=== PATIENT | female | born 1995 | race Caucasian/White ===

== ENCOUNTER → 2020-09-04 | Outpatient (CLI) | payer BC | LOC: CPPFTMAIN 07:05 | PROVIDERS: ATTEND Family Medicine | DX: J45.998 Other asthma (principal) | CPT/HCPCS: 94060; 94726; 94729 ==

== ENCOUNTER 2022-08-04 08:34 | Emergency (ER) | payer BC ==
[2022-08-04 08:38] VITALS: TEMP 98.1
[2022-08-04] MEDS ORDERED: SODIUM CHLORIDE 0.9% 1,000 ML IV STA (08:48)
[2022-08-04] MEDS ORDERED: KETOROLAC 15 MG/ML 1 ML VIAL IVP STA (08:48)
[2022-08-04] MEDS ORDERED: ONDANSETRON 4 MG/2 ML VIAL IVP STA (08:48)
--- NOTE | 2022-08-04 08:49 | ED ---
General Adult HPI - General Chief complaint: Abdominal Pain Stated complaint: abd pain, dizzy Time Seen by Provider: 08/04/22 08:44 Source: patient, RN notes reviewed, old records reviewed Mode of arrival: ambulatory Limitations: no limitations - History of Present Illness Initial comments: Nontoxic appearing 26-year-old female presents to the emergency room with complaints of bilateral flank pain and pelvic cramping since yesterday. Currently on menses recently started control. She denies any fevers. No nausea vomiting or diarrhea. No dysuria. States that the pain was making her dizzy which has now resolved. Describes pain as cramping in nature consistent with her menses. No history of kidney stones. No fevers. History of asthma. -: days(s) (1) Location: back (low), pelvis Severity scale (1-10): 4 Quality: other (cramping) Associated Symptoms: denies other symptoms Treatments Prior to Arrival: none - Related Data Home Medications Medication Instructions Recorded Confirmed norethindrone-e.estradioL-iron 1 tab PO HS 08/04/22 08/04/22 [Junel Fe 1 mg-20 Mcg Tablet] Previous Rx's Medication Instructions Recorded Ibuprofen 400 mg PO Q8HR PRN #30 tablet 08/04/22 Allergies Allergy/AdvReac Type Severity Reaction Status Date / Time morphine Allergy Rash/DK Verified 08/04/22 09:06 Patient : No Review of Systems ROS Statement: Those systems with pertinent positive or pertinent negative responses have been documented in the HPI. ROS Other: All systems not noted in ROS Statement are negative. Past Medical History Past Medical History: Asthma History of Any Multi-Drug Resistant Organisms: None Reported Past Surgical History: No Surgical Hx Reported Past Psychological History: No Psychological Hx Reported Smoking Status: Never smoker Past Alcohol Use History: None Reported Past Drug Use History: None Reported General Exam Limitations: no limitations General appearance: alert, in no apparent distress Head exam: Present: atraumatic Eye exam: Present: normal appearance. Absent: scleral icterus, conjunctival injection, periorbital swelling Neck exam: Absent: meningismus Respiratory exam: Absent: respiratory distress, accessory muscle use Cardiovascular Exam: Present: regular rate GI/Abdominal exam: Present: soft, tenderness (suprapubic). Absent: distended, guarding, rebound, rigid Back exam: Present: full ROM, tenderness, paraspinal tenderness (lumbar). Absent: CVA tenderness (R), CVA tenderness (L), vertebral tenderness, rash noted Neurological exam: Present: alert, oriented X3, normal gait Psychiatric exam: Present: normal affect, normal mood Skin exam: Present: warm, dry, normal color. Absent: rash, cyanosis, diaphoretic, petechiae, pallor Course Vital Signs 08/04/22 08/04/22 08:36 10:20 Temperature 98.1 F 98.1 F Pulse Rate 84 72 Respiratory 20 18 Rate Blood Pressure 129/77 111/64 O2 Sat by Pulse 99 100 Oximetry Medical Decision Making - Medical Decision Making Vital signs are stable. Patient is afebrile. Labs show no evidence of leukocytosis. Hemoglobin and hematocrit are stable. Initial electrolytes are unremarkable. Urinalysis is negative. Urine test is negative. No rashes, bruising or evidence of trauma. No dysuria. Patient was given IV fluids, Toradol and Zofran with relief. This is likely musculoskeletal low back pain vs menstrual pain. She was directed to take Tylenol Motrin as needed for pain and discomfort and follow-up with her primary care doctor and return with any new or concerning symptoms. She is agreeable to this plan of care. Case discussed with Dr. Haro. Was pt. sent in by a medical professional or institution ([facility]ULIET Vázquez, ON SITE PROPERTY MANAGER, urgent care, hospital, or [facility]...) When possible be specific @ -No Did you speak to anyone other than the patient for history (EMS, parent, family, police, friend...)? What history was obtained from this source @ -No Did you review nursing and triage notes (agree or disagree)? Why? @ -I reviewed and agree with nursing and triage notes Were old charts reviewed (outside hosp., previous admission, EMS record, old EKG, old radiological studies, urgent care reports/EKG's, [facility] records)? Report findings @ -No old charts were reviewed Differential Diagnosis (chest pain, altered mental status, abdominal pain women, abdominal pain men, vaginal bleeding, weakness, fever, dyspnea, syncope, headache, dizziness, GI bleed, back pain, seizure, CVA, palpatations, mental health, musculoskeletal)? @ -Differential Back Pain: Strain, zoster, cauda equina syndrome, epidural abscess, vertebral osteomyelitis, discitis, fracture, subluxation, disc herniation, DJD, spinal stenosis, dissection, AAA, pancreatitis, peptic ulcer disease, pyelonephritis, kidney stone, this is not meant to be an all-inclusive list. EKG interpreted by me (3pts min.). @ -n/a X-rays interpreted by me (1pt min.). @ -None done CT interpreted by me (1pt min.). @ -None done U/S interpreted by me (1pt. min.). @ -None done What testing was considered but not performed or refused? (CT, X-rays, U/S, labs)? Why? @ -None What meds were considered but not given or refused? Why? @ -None Did you discuss the management of the patient with other professionals (professionals i.e. , PA, ON SITE PROPERTY MANAGER, lab, RT, psych nurse, social sciences department chair, tariff inspector, teacher, evp chief exploration officer, cyanide case hardener)? Give summary @ -No Was smoking cessation discussed for >3mins.? @ -No Was critical care preformed (if so, how long)? @ -No Were there social determinants of health that impacted care today? How? (Homelessness, low income, unemployed, alcoholism, drug addiction, transportation, low edu. Level, literacy, decrease access to med. care, shelter, rehab)? @ -No primary care doctor Was there de-escalation of care discussed even if they declined (Discuss DNR or withdrawal of care, Hospice)? DNR status @ -No What co-morbidities impacted this encounter? (DM, HTN, Smoking, COPD, CAD, Cancer, CVA, ARF, Chemo, Hep., AIDS, mental health diagnosis, sleep apnea, morbid obesity)? @ -Asthma Was patient admitted / discharged? Hospital course, mention meds given and route, prescriptions, significant lab abnormalities, going to OR and other pertinent info. @ -Discharged Undiagnosed new problem with uncertain prognosis? @ -No Drug Therapy requiring intensive monitoring for toxicity (Heparin, Nitro, Insulin, Cardizem)? @ -No Were any procedures done? @ -No Diagnosis/symptom? @ -Musculoskeletal back pain, dysmenorrhea Acute, or Chronic, or Acute on Chronic? @ -Acute Uncomplicated (without systemic symptoms) or Complicated (systemic symptoms)? @ -Uncomplicated Side effects of treatment? @ -No Exacerbation, Progression, or Severe Exacerbation? @ -No Poses a threat to life or bodily function? How? (Chest pain, [place], [place], pneumonia, PE, COPD, DKA, ARF, appy, cholecystitis, CVA, Diverticulitis, Homicidal, Suicidal, threat to staff... and all critical care pts) @ -No - Lab Data Result diagrams: 08/04/22 09:10 08/04/22 09:10 Lab Results 08/04/22 08/04/22 08/04/22 Range/Units 09:10 09:10 09:10 WBC 5.9 (3.8-10.6) k/uL RBC 4.67 (3.80-5.40) m/uL Hgb 14.2 (11.4-16.0) gm/dL Hct 41.7 (34.0-46.0) % MCV 89.3 (80.0-100.0) fL MCH 30.5 (25.0-35.0) pg MCHC 34.1 (31.0-37.0) g/dL RDW 13.4 (11.5-15.5) % Plt Count 318 (150-450) k/uL MPV 7.3 Neutrophils % 52 % Lymphocytes % 32 % Monocytes % 6 % Eosinophils % 6 % Basophils % 1 % Neutrophils # 3.1 (1.3-7.7) k/uL Lymphocytes # 1.9 (1.0-4.8) k/uL Monocytes # 0.3 (0-1.0) k/uL Eosinophils # 0.3 (0-0.7) k/uL Basophils # 0.1 (0-0.2) k/uL Sodium (137-145) mmol/L Potassium (3.5-5.1) mmol/L Chloride (98-107) mmol/L Carbon Dioxide (22-30) mmol/L Anion Gap mmol/L BUN (7-17) mg/dL Creatinine (0.52-1.04) mg/dL Est GFR (CKD-EPI)AfAm (>60 ml/min/1.73 sqM) Est GFR (CKD-EPI)NonAf (>60 ml/min/1.73 sqM) Glucose (74-99) mg/dL Calcium (8.4-10.2) mg/dL Total Bilirubin (0.2-1.3) mg/dL AST (14-36) U/L ALT (4-34) U/L Alkaline Phosphatase (38-126) U/L Total Protein (6.3-8.2) g/dL Albumin (3.5-5.0) g/dL Urine Color Light Yellow Urine Appearance Clear (Clear) Urine pH 5.5 (5.0-8.0) Ur Specific [place] 1.003 (1.001-1.035) Urine Protein Negative (Negative) Urine Glucose (UA) Negative (Negative) Urine Ketones Negative (Negative) Urine Blood Small H (Negative) Urine Nitrite Negative (Negative) Urine Bilirubin Negative (Negative) Urine Urobilinogen <2.0 (<2.0) mg/dL Ur Leukocyte Esterase Negative (Negative) Urine RBC <1 (0-5) /hpf Urine WBC <1 (0-5) /hpf Ur Squamous Epith Cells 1 (0-4) /hpf Urine HCG, Qual Not Detected (Not Detectd) 08/04/22 Range/Units 09:10 WBC (3.8-10.6) k/uL RBC (3.80-5.40) m/uL Hgb (11.4-16.0) gm/dL Hct (34.0-46.0) % MCV (80.0-100.0) fL MCH (25.0-35.0) pg MCHC (31.0-37.0) g/dL RDW (11.5-15.5) % Plt Count (150-450) k/uL MPV Neutrophils % % Lymphocytes % % Monocytes % % Eosinophils % % Basophils % % Neutrophils # (1.3-7.7) k/uL Lymphocytes # (1.0-4.8) k/uL Monocytes # (0-1.0) k/uL Eosinophils # (0-0.7) k/uL Basophils # (0-0.2) k/uL Sodium 141 (137-145) mmol/L Potassium 4.3 (3.5-5.1) mmol/L Chloride 109 H (98-107) mmol/L Carbon Dioxide 24 (22-30) mmol/L Anion Gap 8 mmol/L BUN 13 (7-17) mg/dL Creatinine 0.50 L (0.52-1.04) mg/dL Est GFR (CKD-EPI)AfAm >90 (>60 ml/min/1.73 sqM) Est GFR (CKD-EPI)NonAf >90 (>60 ml/min/1.73 sqM) Glucose 85 (74-99) mg/dL Calcium 9.0 (8.4-10.2) mg/dL Total Bilirubin 0.2 (0.2-1.3) mg/dL AST 22 (14-36) U/L ALT 18 (4-34) U/L Alkaline Phosphatase 45 (38-126) U/L Total Protein 7.3 (6.3-8.2) g/dL Albumin 4.1 (3.5-5.0) g/dL Urine Color Urine Appearance (Clear) Urine pH (5.0-8.0) Ur Specific [place] (1.001-1.035) Urine Protein (Negative) Urine Glucose (UA) (Negative) Urine Ketones (Negative) Urine Blood (Negative) Urine Nitrite (Negative) Urine Bilirubin (Negative) Urine Urobilinogen (<2.0) mg/dL Ur Leukocyte Esterase (Negative) Urine RBC (0-5) /hpf Urine WBC (0-5) /hpf Ur Squamous Epith Cells (0-4) /hpf Urine HCG, Qual (Not Detectd) Disposition Clinical Impression: Back pain, Dysmenorrhea Disposition: HOME SELF-CARE Condition: Good Instructions (If sedation given, give patient instructions): Flank Pain (ED), Back Pain (ED) Additional Instructions: The labs today show normal kidney function. Your electrolytes are normal. There is no evidence of urinary tract infection. Take Tylenol and/or Motrin as needed for any pain or discomfort. Follow up with primary care doctor for continuation of care. Prescriptions: Ibuprofen 400 mg PO Q8HR PRN #30 tablet PRN Reason: Pain Is patient prescribed a controlled substance at d/c from ED?: No Referrals: None,Stated [Primary Care Provider] - 1-2 days Harinder García DO [STAFF PHYSICIAN] - 1-2 days Erik Nash MD [REFERRING] - 1-2 days Time of Disposition: 09:59
[2022-08-04 09:40] LABS: Appearance,Urine Clear (Clear); Bilirubin,Urine Negative (Negative); Blood,Urine Small (Negative); Color,Urine Light Yellow; Glucose,Urine (UA) Negative (Negative); Ketones,Urine Negative (Negative); Leukocyte Esterase,Urine Negative (Negative); Nitrite,Urine Negative (Negative); PH, Urine 5.5 (5.0-8.0); Protein,Urine Negative (Negative); RBC,Urine <1 /hpf (0-5); Specific Gravity,Urine 1.003 (1.001-1.035); Squamous Epithelial Cell,Urine 1 /hpf (0-4); Urobilinogen,Urine <2.0 mg/dL (<2.0); WBC,Urine <1 /hpf (0-5)
[2022-08-04 09:41] LABS: ALT 18 U/L (4-34); AST 22 U/L (14-36); African American GFR (CKD) >90 (>60 ml/min/1.73 sqM); Albumin 4.1 g/dL (3.5-5.0); Alkaline Phosphatase 45 U/L (38-126); Anion Gap 8 mmol/L; Basophils # (A) 0.1 k/uL (0-0.2); Basophils % (A) 1 %; Blood Urea Nitrogen 13 mg/dL (7-17); Carbon Dioxide 24 mmol/L (22-30); Chloride 109 mmol/L (98-107); Eosinophils # (A) 0.3 k/uL (0-0.7); Eosinophils % (A) 6 %; Glucose 85 mg/dL (74-99); HCT 41.7 % (34.0-46.0); HGB 14.2 gm/dL (11.4-16.0); Lymphocytes # (A) 1.9 k/uL (1.0-4.8); Lymphocytes % (A) 32 %; MCH 30.5 pg (25.0-35.0); MCHC 34.1 g/dL (31.0-37.0); MCV 89.3 fL (80.0-100.0); Mean Platelet Volume 7.3; Monocytes # (A) 0.3 k/uL (0-1.0); Monocytes % (A) 6 %; Neutrophils # (A) 3.1 k/uL (1.3-7.7); Neutrophils % (A) 52 %; Non-African American GFR(CKD) >90 (>60 ml/min/1.73 sqM); Platelet Count 318 k/uL (150-450); Potassium 4.3 mmol/L (3.5-5.1); RBC 4.67 m/uL (3.80-5.40); RDW 13.4 % (11.5-15.5); Sodium 141 mmol/L (137-145); Total Bilirubin 0.2 mg/dL (0.2-1.3); Total Protein 7.3 g/dL (6.3-8.2); WBC 5.9 k/uL (3.8-10.6)
[2022-08-04 10:21] VITALS: BP 111/64; PULSE 72; RESP 18
== END 2022-08-04 10:20 | disposition home or self-care (01) ==
LOC: EC 08:34
DX: N94.6 Dysmenorrhea, unspecified (principal); J45.909 Unspecified asthma, uncomplicated; Z88.5 Allergy status to narcotic agent
CPT/HCPCS: 99284 ×2; 96374 ×2; 96375 ×2; 96361 ×2; 36415; 80053; 85025; 81001; 81025; J2405; J1885

== ENCOUNTER 2022-08-14 16:55 | Emergency (ER) | payer BC ==
--- NOTE | 2022-08-14 17:39 | ED ---
Abdominal Pain HPI - General Chief Complaint: Abdominal Pain Stated Complaint: Abd problems Time Seen by Provider: 08/14/22 17:16 Source: patient Mode of arrival: ambulatory Limitations: no limitations - History of Present Illness Initial Comments: This patient is 26-year-old woman who presents with complaint of constipation. She states she is having diffuse abdominal cramping associated. Her last normal bowel movement was approximately 2 weeks ago. She states that she has tried two saline enemas which only resulted in a very small amount of stool. The patient has tried taking lactulose and also tried Colace without significant relief of symptoms. The patient had gone to an urgent care and had digital rectal exam did not reveal stool in the rectal vault. Patient not having vomiting. MD Complaint: abdominal pain Onset/Timin -: week(s) Location: diffuse Severity: moderate Quality: cramping Consistency: intermittent Improves With: nothing Worsens With: nothing Associated Symptoms: constipation - Related Data Home Medications Medication Instructions Recorded Confirmed norethindrone-e.estradioL-iron 1 tab PO HS 08/04/22 08/14/22 [Junel Fe 1 mg-20 Mcg Tablet] Sulfamethox-Tmp 800-160Mg [Bactrim 1 tab PO Q12HR 08/14/22 08/14/22 DS 800-160 mg] Previous Rx's Medication Instructions Recorded Ibuprofen 400 mg PO Q8HR PRN #30 tablet 08/04/22 Allergies Allergy/AdvReac Type Severity Reaction Status Date / Time morphine Allergy Rash/DK Verified 08/14/22 17:14 Review of Systems ROS Statement: Those systems with pertinent positive or pertinent negative responses have been documented in the HPI. ROS Other: All systems not noted in ROS Statement are negative. Constitutional: Denies: fever, chills Respiratory: Denies: cough, dyspnea Cardiovascular: Denies: chest pain, palpitations Gastrointestinal: Reports: abdominal pain, nausea, constipation. Denies: vomiting, diarrhea, melena, hematochezia Genitourinary: Denies: dysuria, hematuria Musculoskeletal: Denies: back pain Skin: Denies: rash Neurological: Denies: headache, weakness Past Medical History Past Medical History: Asthma History of Any Multi-Drug Resistant Organisms: None Reported Past Surgical History: No Surgical Hx Reported Past Psychological History: No Psychological Hx Reported Smoking Status: Never smoker Past Alcohol Use History: None Reported Past Drug Use History: None Reported General Exam Limitations: no limitations General appearance: alert, in no apparent distress Head exam: Present: atraumatic, normocephalic Eye exam: Present: normal appearance. Absent: scleral icterus, conjunctival injection Respiratory exam: Present: normal lung sounds bilaterally. Absent: respiratory distress, wheezes, rales, rhonchi, stridor Cardiovascular Exam: Present: regular rate, normal rhythm, normal heart sounds. Absent: systolic murmur, diastolic murmur, rubs, gallop GI/Abdominal exam: Present: soft. Absent: distended, tenderness, guarding, re bound, rigid, mass Extremities exam: Present: normal inspection, normal capillary refill. Absent: pedal edema, calf tenderness Back exam: Present: normal inspection. Absent: CVA tenderness (R), CVA tenderness (L) Neurological exam: Present: alert Skin exam: Present: warm, dry, intact, normal color. Absent: rash Course Vital Signs 08/14/22 08/14/22 17:12 20:45 Pulse Rate 88 89 Respiratory 16 18 Rate Blood Pressure 148/76 141/72 O2 Sat by Pulse 99 100 Oximetry Medical Decision Making - Medical Decision Making This patient is a 26-year-old woman presenting with abdominal pain and sensation of constipation. The patient did have abdominal x-ray as it had been a while since she ever passing flatus and I interpreted this as not showing bowel obstruction or free air. The patient is offered enema here but she would like to attempt this at home. I believe that the patient will benefit also from having the course of GoLYTELY. I discussed appropriate use of both of these as well as the appropriate follow- up and return parameters. Was pt. sent in by a medical professional or institution (, PA, DOG OR HORSE RACING OFFICIAL, urgent care, hospital, or penitentiary...) When possible be specific @ -[No] Did you speak to anyone other than the patient for history (EMS, parent, family, police, friend...)? What history was obtained from this source @ -[No] Did you review nursing and triage notes (agree or disagree)? Why? @ -[I reviewed and agree with nursing and triage notes] Were old charts reviewed (outside hosp., previous admission, EMS record, old EKG, old radiological studies, urgent care reports/EKG's, penitentiary records)? Report findings @ -[No old charts were reviewed] Differential Diagnosis (chest pain, altered mental status, abdominal pain women, abdominal pain men, vaginal bleeding, weakness, fever, dyspnea, syncope, headache, dizziness, GI bleed, back pain, seizure, CVA, palpatations, mental health, musculoskeletal)? @ -[Differential Abdominal Pain Women: Appendicitis, Cholecystitis, diverticulosis, ischemic bowel, pancreatitis, hepatitis, UTI, gastroenteritis, AAA, incarcerated hernia, bowel obstruction, constipation, inflammatory bowel, hepatitis, peptic ulcer disease, splenic infarction, perforated viscus, vulvitis, ovarian torsion, PID, kidney stone, placenta abruption, this is not meant to be an all-inclusive list EKG interpreted by me (3pts min.). @ -[ X-rays interpreted by me (1pt min.). @ -[As above CT interpreted by me (1pt min.). @ -[None done] U/S interpreted by me (1pt. min.). @ -[None done] What testing was considered but not performed or refused? (CT, X-rays, U/S, labs)? Why? @ -[None] What meds were considered but not given or refused? Why? @ -[None] Did you discuss the management of the patient with other professionals (professionals i.e. , PA, DOG OR HORSE RACING OFFICIAL, lab, RT, psych nurse, rn social services, mexican food cook, teacher, cavalry officer, continuous pillowcase cutter)? Give summary @ -[No] Was smoking cessation discussed for >3mins.? @ -[No] Was critical care preformed (if so, how long)? @ -[No] Were there social determinants of health that impacted care today? How? (Homelessness, low income, unemployed, alcoholism, drug addiction, transportation, low edu. Level, literacy, decrease access to med. care, prison, rehab)? @ -[No] Was there de-escalation of care discussed even if they declined (Discuss DNR or withdrawal of care, Hospice)? DNR status @ -[No] What co-morbidities impacted this encounter? (DM, HTN, Smoking, COPD, CAD, Cancer, CVA, ARF, Chemo, Hep., AIDS, mental health diagnosis, sleep apnea, morbid obesity)? @ -[None] Was patient admitted / discharged? Hospital course, mention meds given and route, prescriptions, significant lab abnormalities, going to OR and other pertinent info. @ -[Discharged Undiagnosed new problem with uncertain prognosis? @ -[No] Drug Therapy requiring intensive monitoring for toxicity (Heparin, Nitro, Insulin, Cardizem)? @ -[No] Were any procedures done? @ -[No] Diagnosis/symptom? @ -[Abdominal pain, acute Constipation, acute Acute, or Chronic, or Acute on Chronic? @ -[default] Uncomplicated (without systemic symptoms) or Complicated (systemic symptoms)? @ -[Uncomplicated Side effects of treatment? @ -[No] Exacerbation, Progression, or Severe Exacerbation? @ -[No] Poses a threat to life or bodily function? How? (Chest pain, [place], [place], pneumonia, PE, COPD, DKA, ARF, appy, cholecystitis, CVA, Diverticulitis, Homicidal, Suicidal, threat to staff... and all critical care pts) @ -[No] - Lab Data Lab Results 08/14/22 08/14/22 Range/Units 17:52 17:52 Urine Color Yellow Urine Appearance Clear (Clear) Urine pH 7.0 (5.0-8.0) Ur Specific [place] 1.015 (1.001-1.035) Urine Protein Negative (Negative) Urine Glucose (UA) Negative (Negative) Urine Ketones 1+ H (Negative) Urine Blood Trace H (Negative) Urine Nitrite Negative (Negative) Urine Bilirubin Negative (Negative) Urine Urobilinogen <2.0 (<2.0) mg/dL Ur Leukocyte Esterase Negative (Negative) Urine RBC 2 (0-5) /hpf Urine WBC 3 (0-5) /hpf Ur Squamous Epith Cells 6 H (0-4) /hpf Urine Mucus Rare H (None) /hpf Urine HCG, Qual Not Detected (Not Detectd) Disposition Clinical Impression: Constipation Disposition: HOME SELF-CARE Condition: Good Instructions (If sedation given, give patient instructions): Acute Abdominal Pain (ED) Is patient prescribed a controlled substance at d/c from ED?: No Referrals: None,Stated [Primary Care Provider] - 1-2 days
[2022-08-14 18:07] LABS: Appearance,Urine Clear (Clear); Bilirubin,Urine Negative (Negative); Blood,Urine Trace (Negative); Color,Urine Yellow; Glucose,Urine (UA) Negative (Negative); Ketones,Urine 1+ (Negative); Leukocyte Esterase,Urine Negative (Negative); Mucus,Urine Rare /hpf; Nitrite,Urine Negative (Negative); Protein,Urine Negative (Negative); RBC,Urine 2 /hpf (0-5); Specific Gravity,Urine 1.015 (1.001-1.035); Squamous Epithelial Cell,Urine 6 /hpf (0-4); Urobilinogen,Urine <2.0 mg/dL (<2.0); WBC,Urine 3 /hpf (0-5)
--- NOTE | 2022-08-14 18:40 | XR ---
EXAMINATION TYPE: XR KUB DATE OF EXAM: 08/14/2022 6:29 PM CLINICAL HISTORY: Abdominal pain. TECHNIQUE: Two Upright KUB images of the abdomen are obtained. COMPARISON: CT abdomen and pelvis May 09, 2015. FINDINGS: Gas is seen in nondistended stomach. Scattered gas is seen in non-distended small bowel loo ps. Gas and fecal material is seen in non-distended colon. Metallic left nipple ornament incidentally noted. There is no visceromegaly, pneumoperitoneum, or abnormal calcification appreciated. The lung bases are clear. Slight scoliotic curvature redemonstrated. IMPRESSION: Overall nonobstructive bowel gas pattern.
[2022-08-14] MEDS ORDERED: PEG 3350 (236 GM/BTL) + LYTES 4,000 ML BOTTLE PO ONE (20:22)
[2022-08-14 20:46] VITALS: BP 141/72; PULSE 89; RESP 18
== END 2022-08-14 20:55 | disposition home or self-care (01) ==
LOC: EC 16:55
DX: K59.00 Constipation, unspecified (principal); J45.909 Unspecified asthma, uncomplicated; Z88.5 Allergy status to narcotic agent
CPT/HCPCS: 74018; 81001; 81025; 99284

== ENCOUNTER 2023-04-12 15:35 | Emergency (ER) | payer BC ==
[2023-04-12 15:43] VITALS: BP 117/70; PULSE 99; RESP 18; TEMP 99.1
[2023-04-12 16:48] LABS: Color,Urine Yellow
[2023-04-12 16:49] LABS: Appearance,Urine Clear (Clear); Bilirubin,Urine Negative (Negative); Blood,Urine Small (Negative); Glucose,Urine (UA) Negative (Negative); Ketones,Urine Negative (Negative); Leukocyte Esterase,Urine Negative (Negative); Nitrite,Urine Negative (Negative); PH, Urine 5.5 (5.0-8.0); Protein,Urine Negative (Negative); Urobilinogen,Urine <2.0 mg/dL (<2.0)
--- NOTE | 2023-04-12 17:42 | ED ---
General Adult HPI - General Chief complaint: Urogenital Stated complaint: abd/back pain Time Seen by Provider: 04/12/23 16:52 Source: patient Mode of arrival: ambulatory Limitations: no limitations - History of Present Illness Initial comments: 27-year-old female presenting with chief complaint of abdominal pain and back pain. Patient states that she started to feel generally fatigued a few days ago. Since then she's developed bilateral flank pain and upper abdominal pain. She admits to nausea and vomiting. Admits to diarrhea. No dysuria or willian turia. No fevers or chills. No chest pain or difficulty breathing. No vaginal bleeding or discharge. - Related Data Home Medications Medication Instructions Recorded Confirmed norethindrone-e.estradioL-iron 1 tab PO HS 08/04/22 08/14/22 [Junel Fe 1 mg-20 Mcg Tablet] Sulfamethox-Tmp 800-160Mg [Bactrim 1 tab PO Q12HR 08/14/22 08/14/22 DS 800-160 mg] Previous Rx's Medication Instructions Recorded Ibuprofen 400 mg PO Q8HR PRN #30 tablet 08/04/22 Ondansetron Odt [Zofran Odt] 4 mg PO Q8HR PRN #20 tab 04/12/23 Allergies Allergy/AdvReac Type Severity Reaction Status Date / Time morphine Allergy Rash/DK Verified 04/12/23 15:41 Review of Systems ROS Statement: Those systems with pertinent positive or pertinent negative responses have been documented in the HPI. ROS Other: All systems not noted in ROS Statement are negative. Past Medical History Past Medical History: Asthma Additional Past Medical History / Comment(s): renal fusion (horseshoe kidney) History of Any Multi-Drug Resistant Organisms: None Reported Past Surgical History: No Surgical Hx Reported Past Psychological History: No Psychological Hx Reported Smoking Status: Never smoker Past Alcohol Use History: None Reported Past Drug Use History: None Reported General Exam - General Exam Comments Initial Comments: Visual Physical Exam Vital signs reviewed General: Well-appearing, nontoxic, no acute distress. Head: Normocephalic, atraumatic Eyes: PERRLA, EOMI ENT: Airway patent Chest: Nonlabored breathing Skin: No visual rash, normal skin tone Neuro: Alert and oriented 3 Musculoskeletal: No gross abnormalities Limitations: no limitations General appearance: alert, in no apparent distress Head exam: Present: atraumatic, normocephalic, normal inspection Eye exam: Present: normal appearance, EOMI Neck exam: Present: normal inspection, full ROM Respiratory exam: Present: normal lung sounds bilaterally. Absent: respiratory distress, wheezes, rales, rhonchi, stridor Cardiovascular Exam: Present: regular rate, normal rhythm, normal heart sounds. Absent: systolic murmur, diastolic murmur, rubs, gallop, clicks GI/Abdominal exam: Present: soft. Absent: distended, tenderness, guarding, rebound, rigid Neurological exam: Present: alert, oriented X3 Psychiatric exam: Present: normal affect, normal mood Skin exam: Present: warm, dry, intact, normal color. Absent: rash Course Vital Signs 04/12/23 15:37 Temperature 99.1 F Pulse Rate 99 Respiratory 18 Rate Blood Pressure 117/70 O2 Sat by Pulse 100 Oximetry Medical Decision Making - Medical Decision Making Was pt. sent in by a medical professional or institution (, PA, ENGINE ASSEMBLY SUPERVISOR, urgent care, hospital, or half-way...) When possible be specific @ -No Did you speak to anyone other than the patient for history (EMS, parent, family, police, friend...)? What history was obtained from this source @ -No Did you review nursing and triage notes (agree or disagree)? Why? @ -I reviewed the nursing note, patient is not complaining of any dysuria or other UTI like symptoms to me Were old charts reviewed (outside hosp., previous admission, EMS record, old EKG, old radiological studies, urgent care reports/EKG's, half-way records)? Report findings @ -No old charts were reviewed Differential Diagnosis (chest pain, altered mental status, abdominal pain women, abdominal pain men, vaginal bleeding, weakness, fever, dyspnea, syncope, headache, dizziness, GI bleed, back pain, seizure, CVA, palpatations, mental health, musculoskeletal)? @ -MDM Differential Abdominal Pain Women: Appendicitis, Cholecystitis, diverticulosis, ischemic bowel, pancreatitis, hepatitis, UTI, gastroenteritis, AAA, incarcerated hernia, bowel obstruction, constipation, inflammatory bowel, hepatitis, peptic ulcer disease, splenic infarction, perforated viscus, vulvitis, ovarian torsion, PID, kidney stone, placenta abruption... This is not meant to be an all-inclusive list EKG interpreted by me (3pts min.). @ -As above X-rays interpreted by me (1pt min.). @ -None done CT interpreted by me (1pt min.). @ -None done U/S interpreted by me (1pt. min.). @ -None done What testing was considered but not performed or refused? (CT, X-rays, U/S, labs)? Why? @ -None What meds were considered but not given or refused? Why? @ -None Did you discuss the management of the patient with other professionals (professionals i.e. , PA, ENGINE ASSEMBLY SUPERVISOR, lab, RT, psych nurse, social media campaign manager, gold wheel blocker and polisher, t eacher, state wildlife officer, child support case officer)? Give summary @ -No Was smoking cessation discussed for >3mins.? @ -No Was critical care preformed (if so, how long)? @ -No Were there social determinants of health that impacted care today? How? (Homelessness, low income, unemployed, alcoholism, drug addiction, transportation, low edu. Level, literacy, decrease access to med. care, assisted, rehab)? @ -No Was there de-escalation of care discussed even if they declined (Discuss DNR or withdrawal of care, Hospice)? DNR status @ -No What co-morbidities impacted this encounter? (DM, HTN, Smoking, COPD, CAD, Cancer, CVA, ARF, Chemo, Hep., AIDS, mental health diagnosis, sleep apnea, morbid obesity)? @ -None Was patient admitted / discharged? Hospital course, mention meds given and ro elsie, prescriptions, significant lab abnormalities, going to OR and other pertinent info. @ -27-year-old female presenting with chief complaint of abdominal pain. Mainly in the upper abdomen. History and physical exam were conducted. Lab work is non-actionable. Given patient's symptoms of abdominal pain and nausea and vomiting in the setting of negative lab work symptoms are likely due to gastritis or gastroenteritis. Patient is provided with nausea medication and Pepcid. Educated on today's findings and supportive management at home.Follow- up with PCP. Report back to ER with any new or worsening symptoms. Discussed return parameters and answered all questions. Patient conveyed verbal understanding and agreed to the plan. I discussed this case in detail with my attending Dr. Wallace Undiagnosed new problem with uncertain prognosis? @ -No Drug Therapy requiring intensive monitoring for toxicity (Heparin, Nitro, Insulin, Cardizem)? @ -No Were any procedures done? @ -No Diagnosis/symptom? @ -Gastroenteritis Acute, or Chronic, or Acute on Chronic? @ -acute Uncomplicated (without systemic symptoms) or Complicated (systemic symptoms)? @ -Uncomplicated Side effects of treatment? @ -No Exacerbation, Progression, or Severe Exacerbation? @ -No Poses a threat to life or bodily function? How? (Chest pain, [place], [place], pneumonia, PE, COPD, DKA, ARF, appy, cholecystitis, CVA, Diverticulitis, Homicidal, Suicidal, threat to staff... and all critical care pts) @ -No - Lab Data Result diagrams: 04/12/23 17:43 04/12/23 17:43 Lab Results 04/12/23 04/12/23 04/12/23 Range/Units 15:44 15:44 17:43 WBC 8.9 (3.8-10.6) k/uL RBC 4.45 (3.80-5.40) m/uL Hgb 13.6 (11.4-16.0) gm/dL Hct 39.6 (34.0-46.0) % MCV 89.0 (80.0-100.0) fL MCH 30.5 (25.0-35.0) pg MCHC 34.3 (31.0-37.0) g/dL RDW 12.5 (11.5-15.5) % Plt Count 366 (150-450) k/uL MPV 7.4 Neutrophils % 57 % Lymphocytes % 33 % Monocytes % 6 % Eosinophils % 1 % Basophils % 0 % Neutrophils # 5.1 (1.3-7.7) k/uL Lymphocytes # 2.9 (1.0-4.8) k/uL Monocytes # 0.5 (0-1.0) k/uL Eosinophils # 0.1 (0-0.7) k/uL Basophils # 0.0 (0-0.2) k/uL Sodium (137-145) mmol/L Potassium (3.5-5.1) mmol/L Chloride (98-107) mmol/L Carbon Dioxide (22-30) mmol/L Anion Gap mmol/L BUN (7-17) mg/dL Creatinine (0.52-1.04) mg/dL Est GFR (CKD-EPI)AfAm (>60 ml/min/1.73 sqM) Est GFR (CKD-EPI)NonAf (>60 ml/min/1.73 sqM) Glucose (74-99) mg/dL Calcium (8.4-10.2) mg/dL Total Bilirubin (0.2-1.3) mg/dL AST (14-36) U/L ALT (4-34) U/L Alkaline Phosphatase (38-126) U/L Total Protein (6.3-8.2) g/dL Albumin (3.5-5.0) g/dL Amylase (30-110) U/L Lipase (23-300) U/L Urine Color Yellow Urine Appearance Clear (Clear) Urine pH 5.5 (5.0-8.0) Ur Specific [place] 1.010 (1.001-1.035) Urine Protein Negative (Negative) Urine Glucose (UA) Negative (Negative) Urine Ketones Negative (Negative) Urine Blood Small (Negative) Urine Nitrite Negative (Negative) Urine Bilirubin Negative (Negative) Urine Urobilinogen <2.0 (<2.0) mg/dL Ur Leukocyte Esterase Negative (Negative) Urine HCG, Qual Not Detected (Not Detectd) Influenza Type A (PCR) (Not Detectd) Influenza Type B (PCR) (Not Detectd) RSV (PCR) (Not Detectd) SARS-CoV-2 (PCR) (Not Detectd) 04/12/23 04/12/23 Range/Units 17:43 17:43 WBC (3.8-10.6) k/uL RBC (3.80-5.40) m/uL Hgb (11.4-16.0) gm/dL Hct (34.0-46.0) % MCV (80.0-100.0) fL MCH (25.0-35.0) pg MCHC (31.0-37.0) g/dL RDW (11.5-15.5) % Plt Count (150-450) k/uL MPV Neutrophils % % Lymphocytes % % Monocytes % % Eosinophils % % Basophils % % Neutrophils # (1.3-7.7) k/uL Lymphocytes # (1.0-4.8) k/uL Monocytes # (0-1.0) k/uL Eosinophils # (0-0.7) k/uL Basophils # (0-0.2) k/uL Sodium 140 (137-145) mmol/L Potassium 3.9 (3.5-5.1) mmol/L Chloride 107 (98-107) mmol/L Carbon Dioxide 20 L (22-30) mmol/L Anion Gap 13 mmol/L BUN 11 (7-17) mg/dL Creatinine 0.45 L (0.52-1.04) mg/dL Est GFR (CKD-EPI)AfAm >90 (>60 ml/min/1.73 sqM) Est GFR (CKD-EPI)NonAf >90 (>60 ml/min/1.73 sqM) Glucose 81 (74-99) mg/dL Calcium 9.4 (8.4-10.2) mg/dL Total Bilirubin 0.4 (0.2-1.3) mg/dL AST 22 (14-36) U/L ALT 14 (4-34) U/L Alkaline Phosphatase 61 (38-126) U/L Total Protein 7.8 (6.3-8.2) g/dL Albumin 4.6 (3.5-5.0) g/dL Amylase 76 (30-110) U/L Lipase 87 (23-300) U/L Urine Color Urine Appearance (Clear) Urine pH (5.0-8.0) Ur Specific [place] (1.001-1.035) Urine Protein (Negative) Urine Glucose (UA) (Negative) Urine Ketones (Negative) Urine Blood (Negative) Urine Nitrite (Negative) Urine Bilirubin (Negative) Urine Urobilinogen (<2.0) mg/dL Ur Leukocyte Esterase (Negative) Urine HCG, Qual (Not Detectd) Influenza Type A (PCR) Not Detected (Not Detectd) Influenza Type B (PCR) Not Detected (Not Detectd) RSV (PCR) Not Detected (Not Detectd) SARS-CoV-2 (PCR) Not Detected (Not Detectd) Disposition Clinical Impression: Gastroenteritis Disposition: HOME SELF-CARE Condition: Good Instructions (If sedation given, give patient instructions): Gastroenteritis (ED) Additional Instructions: Follow-up with PCP. Report back to ER with any new or worsening symptoms. Prescriptions: Ondansetron Odt [Zofran Odt] 4 mg PO Q8HR PRN #20 tab PRN Reason: Nausea Is patient prescribed a controlled substance at d/c from ED?: No Referrals: None,Stated [Primary Care Provider] - 1-2 days Time of Disposition: 19:37
[2023-04-12 18:16] LABS: Basophils % (A) 0 %; Eosinophils # (A) 0.1 k/uL (0-0.7); Eosinophils % (A) 1 %; HCT 39.6 % (34.0-46.0); HGB 13.6 gm/dL (11.4-16.0); Lymphocytes # (A) 2.9 k/uL (1.0-4.8); Lymphocytes % (A) 33 %; MCH 30.5 pg (25.0-35.0); MCHC 34.3 g/dL (31.0-37.0); Mean Platelet Volume 7.4; Monocytes # (A) 0.5 k/uL (0-1.0); Monocytes % (A) 6 %; Neutrophils # (A) 5.1 k/uL (1.3-7.7); Neutrophils % (A) 57 %; Platelet Count 366 k/uL (150-450); RBC 4.45 m/uL (3.80-5.40); RDW 12.5 % (11.5-15.5); WBC 8.9 k/uL (3.8-10.6)
[2023-04-12 18:33] LABS: ALT 14 U/L (4-34); AST 22 U/L (14-36); African American GFR (CKD) >90 (>60 ml/min/1.73 sqM); Albumin 4.6 g/dL (3.5-5.0); Alkaline Phosphatase 61 U/L (38-126); Amylase 76 U/L (30-110); Anion Gap 13 mmol/L; Blood Urea Nitrogen 11 mg/dL (7-17); Calcium 9.4 mg/dL (8.4-10.2); Carbon Dioxide 20 mmol/L (22-30); Chloride 107 mmol/L (98-107); Glucose 81 mg/dL (74-99); Lipase 87 U/L (23-300); Non-African American GFR(CKD) >90 (>60 ml/min/1.73 sqM); Potassium 3.9 mmol/L (3.5-5.1); Sodium 140 mmol/L (137-145); Total Bilirubin 0.4 mg/dL (0.2-1.3); Total Protein 7.8 g/dL (6.3-8.2)
[2023-04-12] MEDS ORDERED: FAMOTIDINE 20 MG/2 ML VIAL IV STA (19:30)
[2023-04-12] MEDS ORDERED: ONDANSETRON 4 MG/2 ML VIAL IVP STA (19:31)
[2023-04-12] MEDS ORDERED: ONDANSETRON ODT 4 MG TAB PO STA (19:41)
[2023-04-12] MEDS ORDERED: FAMOTIDINE 20 MG TAB PO STA (19:41)
== END 2023-04-12 19:51 | disposition home or self-care (01) ==
LOC: EC 15:35
DX: K52.9 Noninfective gastroenteritis and colitis, unspecified (principal); J45.909 Unspecified asthma, uncomplicated; Z20.822 Contact with and (suspected) exposure to COVID-19; Z88.5 Allergy status to narcotic agent
CPT/HCPCS: 36415; 80053; 81001; 81025; 82150; 83690; 85025; 87636; 99284

== ENCOUNTER 2023-09-17 11:15 | Emergency (ER) | payer BC ==
[2023-09-17 12:26] LABS: Basophils # (A) 0.1 k/uL (0-0.2); Basophils % (A) 1 %; Eosinophils # (A) 0.1 k/uL (0-0.7); Eosinophils % (A) 1 %; HCT 43.2 % (34.0-46.0); HGB 14.1 gm/dL (11.4-16.0); Lymphocytes # (A) 2.4 k/uL (1.0-4.8); Lymphocytes % (A) 29 %; MCH 30.2 pg (25.0-35.0); MCHC 32.5 g/dL (31.0-37.0); MCV 92.7 fL (80.0-100.0); Mean Platelet Volume 6.8; Monocytes # (A) 0.5 k/uL (0-1.0); Monocytes % (A) 6 %; Neutrophils # (A) 4.8 k/uL (1.3-7.7); Neutrophils % (A) 60 %; Platelet Count 403 k/uL (150-450); RBC 4.66 m/uL (3.80-5.40); RDW 12.7 % (11.5-15.5)
[2023-09-17 12:32] LABS: ALT 13 U/L (4-34); AST 19 U/L (14-36); African American GFR (CKD) >90 (>60 ml/min/1.73 sqM); Albumin 4.3 g/dL (3.5-5.0); Alkaline Phosphatase 51 U/L (38-126); Anion Gap 10 mmol/L; Blood Urea Nitrogen 12 mg/dL (7-17); Calcium 9.5 mg/dL (8.4-10.2); Carbon Dioxide 21 mmol/L (22-30); Chloride 110 mmol/L (98-107); Glucose 89 mg/dL (74-99); Non-African American GFR(CKD) >90 (>60 ml/min/1.73 sqM); Potassium 3.9 mmol/L (3.5-5.1); Sodium 141 mmol/L (137-145); Total Bilirubin 0.5 mg/dL (0.2-1.3); Total Protein 7.4 g/dL (6.3-8.2)
[2023-09-17 12:47] LABS: HCG,Quantitative Serum 31.7 mIU/mL
[2023-09-17 12:54] LABS: Appearance,Urine Cloudy (Clear); Bacteria,Urine Occasional /hpf; Bilirubin,Urine Negative (Negative); Blood,Urine Moderate (Negative); Budding Yeast,Urine Few /hpf; Color,Urine Yellow; Glucose,Urine (UA) Negative (Negative); Ketones,Urine Negative (Negative); Leukocyte Esterase,Urine Large (Negative); Mucus,Urine Moderate /hpf; Nitrite,Urine Negative (Negative); Protein,Urine Trace (Negative); RBC,Urine 12 /hpf (0-5); Specific Gravity,Urine 1.019 (1.001-1.035); Squamous Epithelial Cell,Urine 12 /hpf (0-4); Urobilinogen,Urine <2.0 mg/dL (<2.0); WBC,Urine 114 /hpf (0-5)
--- NOTE | 2023-09-17 13:08 | ED ---
General Adult HPI - General Chief complaint: OB/Uterine Contractions Stated complaint: abn labs Time Seen by Provider: 09/17/23 11:22 Source: patient, RN notes reviewed Mode of arrival: ambulatory Limitations: no limitations - History of Present Illness Initial comments: 27-year-old female presents to the emergency department for evaluation of elevated hCG following a miscarriage. Patient states that about 2 weeks ago she had a positive test and had experienced vaginal bleeding and cramping. She was then given medication to assist with the miscarriage. She had her hcg repeated 2 days ago which was 50. Her primary care provider is concerned as it is still elevated and advised her to come to the emergency department for an ultrasound. She denies fever, chills. She reports that today she has not had any bleeding but admits to mild cramping. - Related Data Home Medications Medication Instructions Recorded Confirmed norethindrone-e.estradioL-iron 1 tab PO HS 08/04/22 08/14/22 [Junel Fe 1 mg-20 Mcg Tablet] Sulfamethox-Tmp 800-160Mg [Bactrim 1 tab PO Q12HR 08/14/22 08/14/22 DS 800-160 mg] Previous Rx's Medication Instructions Recorded Ibuprofen 400 mg PO Q8HR PRN #30 tablet 08/04/22 Ondansetron Odt [Zofran Odt] 4 mg PO Q8HR PRN #20 tab 04/12/23 Cephalexin [Keflex] 500 mg PO BID #20 cap 09/17/23 Fluconazole [Diflucan] 150 mg PO ONCE #1 tab 09/17/23 Allergies Allergy/AdvReac Type Severity Reaction Status Date / Time morphine Allergy Rash/DK Verified 09/17/23 11:21 Review of Systems ROS Statement: Those systems with pertinent positive or pertinent negative responses have been documented in the HPI. ROS Other: All systems not noted in ROS Statement are negative. Past Medical History Past Medical History: Asthma Additional Past Medical History / Comment(s): renal fusion (horseshoe kidney) History of Any Multi-Drug Resistant Organisms: None Reported Past Surgical History: No Surgical Hx Reported Past Psychological History: No Psychological Hx Reported Smoking Status: Never smoker Past Alcohol Use History: None Reported Past Drug Use History: None Reported General Exam Limitations: no limitations General appearance: alert, in no apparent distress Head exam: Present: atraumatic, normocephalic, normal inspection Eye exam: Present: normal appearance, PERRL, EOMI. Absent: scleral icterus, conjunctival injection, periorbital swelling ENT exam: Present: normal exam, mucous membranes moist Neck exam: Present: normal inspection. Absent: tenderness, meningismus, lymphadenopathy Respiratory exam: Present: normal lung sounds bilaterally. Absent: respiratory distress, wheezes, rales, rhonchi, stridor Cardiovascular Exam: Present: regular rate, normal rhythm, normal heart sounds. Absent: systolic murmur, diastolic murmur, rubs, gallop, clicks GI/Abdominal exam: Present: soft, normal bowel sounds. Absent: distended, tenderness, guarding, rebound, rigid Extremities exam: Present: normal inspection, full ROM, normal capillary refill. Absent: tenderness, pedal edema, joint swelling, calf tenderness Back exam: Present: normal inspection Neurological exam: Present: alert, oriented X3 Psychiatric exam: Present: normal affect, normal mood Skin exam: Present: warm, dry, intact, normal color. Absent: rash Course Vital Signs 09/17/23 09/17/23 11:19 14:40 Temperature 98.4 F 98 F Pulse Rate 86 83 Respiratory 16 18 Rate Blood Pressure 117/71 105/65 O2 Sat by Pulse 99 99 Oximetry Medical Decision Making - Medical Decision Making Was pt. sent in by a medical professional or institution (YULIET Vázquez, CHANNELER RUNNER, urgent care, hospital, or alf...) When possible be specific @ -No Did you speak to anyone other than the patient for history (EMS, parent, family, police, friend...)? What history was obtained from this source @ -No Did you review nursing and triage notes (agree or disagree)? Why? @ -I reviewed and agree with nursing and triage notes Were old charts reviewed (outside hosp., previous admission, EMS record, old EKG, old radiological studies, urgent care reports/EKG's, alf records)? Report findings @ -No old charts were reviewed Differential Diagnosis (chest pain, altered mental status, abdominal pain women, abdominal pain men, vaginal bleeding, weakness, fever, dyspnea, syncope, head ache, dizziness, GI bleed, back pain, seizure, CVA, palpatations, mental health, musculoskeletal)? @ -Differential Vaginal Bleeding: Spontaneous , threatened , molar , ectopic , bloody show, incompetent cervix, abruptioplacenta, placenta previa, uterine rupture, dysfunctional uterine bleeding, hemorrhage, uterine fibroids, this is not meant to be an all-inclusive list. EKG interpreted by me (3pts min.). @ -None X-rays interpreted by me (1pt min.). @ -None done CT interpreted by me (1pt min.). @ -None done U/S interpreted by me (1pt. min.). @ -Ultrasound obtained shows no visualized IUP What testing was considered but not performed or refused? (CT, X-rays, U/S, labs)? Why? @ -None What meds were considered but not given or refused? Why? @ -None Did you discuss the management of the patient with other professionals (professionals i.e. , PA, CHANNELER RUNNER, lab, RT, psych nurse, director of social services, associate buyer, teacher, student liaison officer, insurance case manager)? Give summary @ -No Was smoking cessation discussed for >3mins.? @ -No Was critical care preformed (if so, how long)? @ -No Were there social determinants of health that impacted care today? How? (Homel essness, low income, unemployed, alcoholism, drug addiction, transportation, low edu. Level, literacy, decrease access to med. care, assisted, rehab)? @ -No Was there de-escalation of care discussed even if they declined (Discuss DNR or withdrawal of care, Hospice)? DNR status @ -No What co-morbidities impacted this encounter? (DM, HTN, Smoking, COPD, CAD, Cancer, CVA, ARF, Chemo, Hep., AIDS, mental health diagnosis, sleep apnea, morbid obesity)? @ -None Was patient admitted / discharged? Hospital course, mention meds given and route, prescriptions, significant lab abnormalities, going to OR and other pertinent info. @ -Discharge. Patient presented to the emergency department for evaluation of vaginal bleeding and cramping. Patient states that she recently had a miscarriage and notes that her hCG has still been elevated. Her PCP sent her to the emergency department for further evaluation. 2 days ago the patient reports that her hCG was 50. Repeat was obtained today which was 31.7. Ultrasound obtained which showed no visualized IUP. Advised patient to have hcg redrawn in 48 hours. Advised to follow up with her PCP. Patient understanding and agreeable with plan. Patient stable at time of discharge. Case discussed with Dr. Power Undiagnosed new problem with uncertain prognosis? @ -No Drug Therapy requiring intensive monitoring for toxicity (Heparin, Nitro, Insulin, Cardizem)? @ -No Were any procedures done? @ -No Diagnosis/symptom? @ -Miscarriage Acute, or Chronic, or Acute on Chronic? @ -acute Uncomplicated (without systemic symptoms) or Complicated (systemic symptoms)? @ -uncomplicated Side effects of treatment? @ -No Exacerbation, Progression, or Severe Exacerbation? @ -No Poses a threat to life or bodily function? How? (Chest pain, [place], [place], pneumonia, PE, COPD, DKA, ARF, appy, cholecystitis, CVA, Diverticulitis, Homicidal, Suicidal, threat to staff... and all critical care pts) @ -No - Lab Data Result diagrams: 09/17/23 11:56 09/17/23 11:56 Lab Results 09/17/23 09/17/23 09/17/23 Range/Units 11:56 11:56 12:18 WBC 8.0 (3.8-10.6) k/uL RBC 4.66 (3.80-5.40) m/uL Hgb 14.1 (11.4-16.0) gm/dL Hct 43.2 (34.0-46.0) % MCV 92.7 (80.0-100.0) fL MCH 30.2 (25.0-35.0) pg MCHC 32.5 (31.0-37.0) g/dL RDW 12.7 (11.5-15.5) % Plt Count 403 (150-450) k/uL MPV 6.8 Neutrophils % 60 % Lymphocytes % 29 % Monocytes % 6 % Eosinophils % 1 % Basophils % 1 % Neutrophils # 4.8 (1.3-7.7) k/uL Lymphocytes # 2.4 (1.0-4.8) k/uL Monocytes # 0.5 (0-1.0) k/uL Eosinophils # 0.1 (0-0.7) k/uL Basophils # 0.1 (0-0.2) k/uL Sodium 141 (137-145) mmol/L Potassium 3.9 (3.5-5.1) mmol/L Chloride 110 H (98-107) mmol/L Carbon Dioxide 21 L (22-30) mmol/L Anion Gap 10 mmol/L BUN 12 (7-17) mg/dL Creatinine 0.45 L (0.52-1.04) mg/dL Est GFR (CKD-EPI)AfAm >90 (>60 ml/min/1.73 sqM) Est GFR (CKD-EPI)NonAf >90 (>60 ml/min/1.73 sqM) Glucose 89 (74-99) mg/dL Calcium 9.5 (8.4-10.2) mg/dL Total Bilirubin 0.5 (0.2-1.3) mg/dL AST 19 (14-36) U/L ALT 13 (4-34) U/L Alkaline Phosphatase 51 (38-126) U/L Total Protein 7.4 (6.3-8.2) g/dL Albumin 4.3 (3.5-5.0) g/dL HCG, Quant 31.7 mIU/mL Urine Color Yellow Urine Appearance Cloudy H (Clear) Urine pH 5.0 (5.0-8.0) Ur Specific [place] 1.019 (1.001-1.035) Urine Protein Trace H (Negative) Urine Glucose (UA) Negative (Negative) Urine Ketones Negative (Negative) Urine Blood Moderate H (Negative) Urine Nitrite Negative (Negative) Urine Bilirubin Negative (Negative) Urine Urobilinogen <2.0 (<2.0) mg/dL Ur Leukocyte Esterase Large H (Negative) Urine RBC 12 H (0-5) /hpf Urine WBC 114 H (0-5) /hpf Urine WBC Clumps Moderate H (None) /hpf Ur Squamous Epith Cells 12 H (0-4) /hpf Urine Bacteria Occasional H (None) /hpf Urine Mucus Moderate H (None) /hpf Urine Yeast (Budding) Few H (None) /hpf Blood Type Blood Type Confirm Blood Type Recheck Bld Type Recheck Status Antibody Screen Spec Expiration Date 09/17/23 09/17/23 Range/Units 12:20 12:25 WBC (3.8-10.6) k/uL RBC (3.80-5.40) m/uL Hgb (11.4-16.0) gm/dL Hct (34.0-46.0) % MCV (80.0-100.0) fL MCH (25.0-35.0) pg MCHC (31.0-37.0) g/dL RDW (11.5-15.5) % Plt Count (150-450) k/uL MPV Neutrophils % % Lymphocytes % % Monocytes % % Eosinophils % % Basophils % % Neutrophils # (1.3-7.7) k/uL Lymphocytes # (1.0-4.8) k/uL Monocytes # (0-1.0) k/uL Eosinophils # (0-0.7) k/uL Basophils # (0-0.2) k/uL Sodium (137-145) mmol/L Potassium (3.5-5.1) mmol/L Chloride (98-107) mmol/L Carbon Dioxide (22-30) mmol/L Anion Gap mmol/L BUN (7-17) mg/dL Creatinine (0.52-1.04) mg/dL Est GFR (CKD-EPI)AfAm (>60 ml/min/1.73 sqM) Est GFR (CKD-EPI)NonAf (>60 ml/min/1.73 sqM) Glucose (74-99) mg/dL Calcium (8.4-10.2) mg/dL Total Bilirubin (0.2-1.3) mg/dL AST (14-36) U/L ALT (4-34) U/L Alkaline Phosphatase (38-126) U/L Total Protein (6.3-8.2) g/dL Albumin (3.5-5.0) g/dL HCG, Quant mIU/mL Urine Color Urine Appearance (Clear) Urine pH (5.0-8.0) Ur Specific [place] (1.001-1.035) Urine Protein (Negative) Urine Glucose (UA) (Negative) Urine Ketones (Negative) Urine Blood (Negative) Urine Nitrite (Negative) Urine Bilirubin (Negative) Urine Urobilinogen (<2.0) mg/dL Ur Leukocyte Esterase (Negative) Urine RBC (0-5) /hpf Urine WBC (0-5) /hpf Urine WBC Clumps (None) /hpf Ur Squamous Epith Cells (0-4) /hpf Urine Bacteria (None) /hpf Urine Mucus (None) /hpf Urine Yeast (Budding) (None) /hpf Blood Type B Positive Blood Type Confirm B Positive Blood Type Recheck No Previous Record Bld Type Recheck Status CABO Indicated Antibody Screen NEGATIVE Spec Expiration Date 09/20/20232324 Disposition Clinical Impression: Spontaneous miscarriage Disposition: HOME SELF-CARE Condition: Stable Additional Instructions: Please follow up with your primary care provider. Return to the emergency de partment for new or worsening symptoms. Prescriptions: Fluconazole [Diflucan] 150 mg PO ONCE #1 tab Cephalexin [Keflex] 500 mg PO BID #20 cap Is patient prescribed a controlled substance at d/c from ED?: No Referrals: Alan Negro MD [Primary Care Provider] - 1-2 days
--- NOTE | 2023-09-17 13:56 | US ---
EXAMINATION TYPE: Ultrasound OB <= 14 week fetus DATE OF EXAM: 09/17/2023 1:07 PM COMPARISON: NONE CLINICAL INDICATION: Female, 27 years old with history of miscarriage 2 wks ago hcg still elevated; M iscarriage 2 weeks ago= patient was 6 weeks . Still bleeding a little with cramps. EXAM PERFORMED: Transabdominal (TA) EXAM MEASUREMENTS: MATERNAL ANATOMY Uterus: 8.2 x 5.5 x 3.7 cm Right Ovary: 3.6 x 1.8 x 1.8 cm Left Ovary: 3.0 x 1.9 x 1.7 cm Post CDS / Adnexa: no Presence of free fluid: no GESTATION / SURVEY IUP: No IUP seen at this time Date of LMP: Unknown Beta HcG (if available): Today 31.7 Retail Shift Supervisor notes: No GS, YS or CRL visualized. Endometrium appears slightly heterogenous, measuring 7.2 mm. IMPRESSION: No visualized intrauterine . The endometrial stripe measures 7.2 mm. No abnormal fluid ident ified within the uterine cavity.
[2023-09-17 15:11] VITALS: BP 105/65; PULSE 83; RESP 18; TEMP 98
== END 2023-09-17 14:52 | disposition home or self-care (01) ==
LOC: EC 11:15
DX: O03.9 Complete or unspecified spontaneous abortion without complication (principal); Z88.5 Allergy status to narcotic agent
CPT/HCPCS: 36415; 76801; 80053; 81001; 84702; 85025; 86850; 86900; 86901; 87086; 99284

== ENCOUNTER 2024-06-07 12:33 | Emergency (ER) | payer SELFPAY ==
[2024-06-07 12:36] VITALS: RESP 18
--- NOTE | 2024-06-07 12:37 | ED ---
Abdominal Pain HPI - General Chief Complaint: Abdominal Pain Stated Complaint: Abd pain Time Seen by Provider: 06/07/24 12:37 Source: patient, RN notes reviewed Mode of arrival: ambulatory Limitations: no limitations - History of Present Illness Initial Comments: This is a 28-year-old female no significant medical history who presents to the emergency room with her mother for complaint of epigastric abdominal pain, flank pain, diarrhea and nausea over the past 2 to 3 days. She denies hememesis, hematochezia, melena, fevers, chills, cough, rhinorrhea, congestion. Patient states that she has an increase in urinary urgency. She denies hematuria, d ysuria, malodorous urine or vaginal discharge. Denies previous surgical abdominal history. Denies known sick contacts or recent travel. - Related Data Home Medications Medication Instructions Recorded Confirmed norethindrone-e.estradioL-iron 1 tab PO HS 08/04/22 08/14/22 [Junel Fe 1 mg-20 Mcg Tablet] Sulfamethox-Tmp 800-160Mg [Bactrim 1 tab PO Q12HR 08/14/22 08/14/22 DS 800-160 mg] Previous Rx's Medication Instructions Recorded Ibuprofen 400 mg PO Q8HR PRN #30 tablet 08/04/22 Ondansetron Odt [Zofran Odt] 4 mg PO Q8HR PRN #20 tab 04/12/23 Cephalexin [Keflex] 500 mg PO BID #20 cap 09/17/23 Fluconazole [Diflucan] 150 mg PO ONCE #1 tab 09/17/23 Ondansetron Odt [Zofran Odt] 4 mg PO Q8HR PRN #10 tab 06/07/24 Allergies Allergy/AdvReac Type Severity Reaction Status Date / Time morphine Allergy Rash/DK Verified 06/07/24 12:36 Review of Systems ROS Statement: Those systems with pertinent positive or pertinent negative responses have been documented in the HPI. ROS Other: All systems not noted in ROS Statement are negative. Past Medical History Past Medical History: Asthma Additional Past Medical History / Comment(s): renal fusion (horseshoe kidney) History of Any Multi-Drug Resistant Organisms: None Reported Past Surgical History: No Surgical Hx Reported Past Psychological History: No Psychological Hx Reported Smoking Status: Never smoker Past Alcohol Use History: None Reported Past Drug Use History: None Reported General Exam Limitations: no limitations Neck exam: Present: normal inspection. Absent: tenderness, meningismus, lymphadenopathy Respiratory exam: Present: normal lung sounds bilaterally. Absent: respiratory distress, wheezes, rales, rhonchi, stridor Cardiovascular Exam: Present: regular rate, normal rhythm, normal heart sounds. Absent: systolic murmur, diastolic murmur, rubs, gallop, clicks GI/Abdominal exam: Present: soft, tenderness (mild LUQ and LLQ to palpation), normal bowel sounds. Absent: distended, guarding, rebound, rigid Extremities exam: Present: normal inspection, full ROM, normal capillary refill. Absent: tenderness, pedal edema, joint swelling, calf tenderness Back exam: Present: normal inspection, tenderness (bilateral mid back pain, abo ve CVA) Course Vital Signs 06/07/24 06/07/24 06/07/24 12:34 14:52 15:56 Temperature 98.9 F 98.7 F 98.7 F Pulse Rate 109 H 101 H 78 Respiratory 18 18 18 Rate Blood Pressure 128/76 124/82 106/66 O2 Sat by Pulse 98 98 99 Oximetry Medical Decision Making - Medical Decision Making Was pt. sent in by a medical professional or institution (, PA, INTERFACE CONTROL OFFICER, urgent care, hospital, or skilled nursing...) When possible be specific @ -No Did you speak to anyone other than the patient for history (EMS, parent, family, police, friend...)? What history was obtained from this source @ -No Did you review nursing and triage notes (agree or disagree)? Why? @ -I reviewed and agree with nursing and triage notes Were old charts reviewed (outside hosp., previous admission, EMS record, old EKG, old radiological studies, urgent care reports/EKG's, skilled nursing records)? Report findings @ -No old charts were reviewed Differential Diagnosis (chest pain, altered mental status, abdominal pain women, abdominal pain men, vaginal bleeding, weakness, fever, dyspnea, syncope, headache, dizziness, GI bleed, back pain, seizure, CVA, palpatations, mental health, musculoskeletal)? @ -Differential Abdominal Pain Women: Appendicitis, Cholecystitis, diverticulosis, ischemic bowel, pancreatitis, hepat itis, UTI, gastroenteritis, AAA, incarcerated hernia, bowel obstruction, constipation, inflammatory bowel, hepatitis, peptic ulcer disease, splenic infarction, perforated viscus, vulvitis, ovarian torsion, PID, kidney stone, placenta abruption, this is not meant to be an all-inclusive list EKG interpreted by me (3pts min.). @ -None X-rays interpreted by me (1pt min.). @ -None done CT interpreted by me (1pt min.). @ -None done U/S interpreted by me (1pt. min.). @ -Abdominal ultrasound completed with a known horseshoe kidney otherwise unremarkable ultrasound examination. Gallbladder no stones evident and common bile duct within normal limits, left kidney no hydronephrosis, calculi, or masses What testing was considered but not performed or refused? (CT, X-rays, U/S, l abs)? Why? @ -None What meds were considered but not given or refused? Why? @ -None Did you discuss the management of the patient with other professionals (professionals i.e. , PA, INTERFACE CONTROL OFFICER, lab, RT, psych nurse, licensed clinical social worker, multimedia educational specialist, teacher, bank secrecy act officer, hospice case manager)? Give summary @ -No Was smoking cessation discussed for >3mins.? @ -No Was critical care preformed (if so, how long)? @ -No Were there social determinants of health that impacted care today? How? (Homelessness, low income, unemployed, alcoholism, drug addiction, transportation, low edu. Level, literacy, decrease access to med. care, usp, rehab)? @ -No Was there de-escalation of care discussed even if they declined (Discuss DNR or withdrawal of care, Hospice)? DNR status @ -No What co-morbidities impacted this encounter? (DM, HTN, Smoking, COPD, CAD, Cancer, CVA, ARF, Chemo, Hep., AIDS, mental health diagnosis, sleep apnea, morbid obesity)? @ -None Was patient admitted / discharged? Hospital course, mention meds given and route, prescriptions, significant lab abnormalities, going to OR and other pertinent info. @ -Discharge. 28-year-old female presenting with diffuse abdominal pain, diarrhea, upper back pain. Patient noted to have bilateral mid back pain on palpation that is above CVA tenderness. Pain is nonradiating., Examination remarkable for diffuse abdominal pain with no signs of rebound tenderness or rigidity. She is better with IV fluids and antiemetics pending laboratory results. CBC, CMP unremarkable. Urinalysis reveals 3+ ketones consistent with dehydration and moderate blood with red cells. hCG is negative. At this time patient will undergo ultrasound imaging of the abdomen including the kidneys for further evaluation. Ultrasound is unremarkable. Patient sent prescription for Zofran to take only as needed instructed follow-up outpatient primary care provider for further evaluation of unspecified abdominal pain. Case discussed with Dr. Boyce Undiagnosed new problem with uncertain prognosis? @ -No Drug Therapy requiring intensive monitoring for toxicity (Heparin, Nitro, Insulin, Cardizem)? @ -No Were any procedures done? @ -No Diagnosis/symptom? @ -Unspecified abdominal pain, diarrhea Acute, or Chronic, or Acute on Chronic? @ -Acute Uncomplicated (without systemic symptoms) or Complicated (systemic symptoms)? @ -Uncomplicated Side effects of treatment? @ -No Exacerbation, Progression, or Severe Exacerbation? @ -No Poses a threat to life or bodily function? How? (Chest pain, [place], [place], pneumonia, PE, COPD, DKA, ARF, appy, cholecystitis, CVA, Diverticulitis, Homicidal, Suicidal, threat to staff... and all critical care pts) @ -No - Lab Data Result diagrams: 06/07/24 12:51 06/07/24 12:51 Lab Results 06/07/24 06/07/24 06/07/24 Range/Units 12:51 12:51 12:51 WBC 8.0 (3.8-10.6) k/uL RBC 4.83 (3.80-5.40) m/uL Hgb 14.7 (11.4-16.0) gm/dL Hct 43.2 (34.0-46.0) % MCV 89.5 (80.0-100.0) fL MCH 30.5 (25.0-35.0) pg MCHC 34.1 (31.0-37.0) g/dL RDW 12.5 (11.5-15.5) % Plt Count 293 (150-450) k/uL MPV 6.7 Neutrophils % 59 % Lymphocytes % 30 % Monocytes % 7 % Eosinophils % 1 % Basophils % 1 % Neutrophils # 4.7 (1.3-7.7) k/uL Lymphocytes # 2.4 (1.0-4.8) k/uL Monocytes # 0.6 (0-1.0) k/uL Eosinophils # 0.1 (0-0.7) k/uL Basophils # 0.1 (0-0.2) k/uL Sodium (137-145) mmol/L Potassium (3.5-5.1) mmol/L Chloride (98-107) mmol/L Carbon Dioxide (22-30) mmol/L Anion Gap mmol/L BUN (7-17) mg/dL Creatinine (0.52-1.04) mg/dL Est GFR (CKD-EPI)AfAm (>60 ml/min/1.73 sqM) Est GFR (CKD-EPI)NonAf (>60 ml/min/1.73 sqM) Glucose (74-99) mg/dL Calcium (8.4-10.2) mg/dL Total Bilirubin (0.2-1.3) mg/dL AST (14-36) U/L ALT (4-34) U/L Alkaline Phosphatase (38-126) U/L Total Protein (6.3-8.2) g/dL Albumin (3.5-5.0) g/dL Amylase (30-110) U/L Lipase (23-300) U/L Urine Color Yellow Urine Appearance Cloudy H (Clear) Urine pH 5.5 (5.0-8.0) Ur Specific [place] 1.031 (1.001-1.035) Urine Protein Trace H (Negative) Urine Glucose (UA) Negative (Negative) Urine Ketones 3+ H (Negative) Urine Blood Moderate H (Negative) Urine Nitrite Negative (Negative) Urine Bilirubin Negative (Negative) Urine Urobilinogen 2.0 (<2.0) mg/dL Ur Leukocyte Esterase Moderate H (Negative) Urine RBC 12 H (0-5) /hpf Urine WBC 3 (0-5) /hpf Ur Squamous Epith Cells 23 H (0-4) /hpf Urine Mucus Few H (None) /hpf Urine HCG, Qual Not Detected (Not Detectd) 06/07/24 Range/Units 12:51 WBC (3.8-10.6) k/uL RBC (3.80-5.40) m/uL Hgb (11.4-16.0) gm/dL Hct (34.0-46.0) % MCV (80.0-100.0) fL MCH (25.0-35.0) pg MCHC (31.0-37.0) g/dL RDW (11.5-15.5) % Plt Count (150-450) k/uL MPV Neutrophils % % Lymphocytes % % Monocytes % % Eosinophils % % Basophils % % Neutrophils # (1.3-7.7) k/uL Lymphocytes # (1.0-4.8) k/uL Monocytes # (0-1.0) k/uL Eosinophils # (0-0.7) k/uL Basophils # (0-0.2) k/uL Sodium 137 (137-145) mmol/L Potassium 3.5 (3.5-5.1) mmol/L Chloride 104 (98-107) mmol/L Carbon Dioxide 21 L (22-30) mmol/L Anion Gap 12 mmol/L BUN 11 (7-17) mg/dL Creatinine 0.54 (0.52-1.04) mg/dL Est GFR (CKD-EPI)AfAm >90 (>60 ml/min/1.73 sqM) Est GFR (CKD-EPI)NonAf >90 (>60 ml/min/1.73 sqM) Glucose 93 (74-99) mg/dL Calcium 9.4 (8.4-10.2) mg/dL Total Bilirubin 0.5 (0.2-1.3) mg/dL AST 22 (14-36) U/L ALT 19 (4-34) U/L Alkaline Phosphatase 71 (38-126) U/L Total Protein 7.8 (6.3-8.2) g/dL Albumin 4.7 (3.5-5.0) g/dL Amylase 60 (30-110) U/L Lipase 59 (23-300) U/L Urine Color Urine Appearance (Clear) Urine pH (5.0-8.0) Ur Specific [place] (1.001-1.035) Urine Protein (Negative) Urine Glucose (UA) (Negative) Urine Ketones (Negative) Urine Blood (Negative) Urine Nitrite (Negative) Urine Bilirubin (Negative) Urine Urobilinogen (<2.0) mg/dL Ur Leukocyte Esterase (Negative) Urine RBC (0-5) /hpf Urine WBC (0-5) /hpf Ur Squamous Epith Cells (0-4) /hpf Urine Mucus (None) /hpf Urine HCG, Qual (Not Detectd) Disposition Clinical Impression: Diarrhea, Unspecified abdominal pain Disposition: HOME SELF-CARE Condition: Good Instructions (If sedation given, give patient instructions): Abdominal Pain (ED) Additional Instructions: Please return to the Emergency Department if symptoms worsen or any other concerns. Prescriptions: Ondansetron Odt [Zofran Odt] 4 mg PO Q8HR PRN #10 tab PRN Reason: Nausea Is patient prescribed a controlled substance at d/c from ED?: No Referrals: None,Stated [Primary Care Provider] - 1-2 days Time of Disposition: 15:26
[2024-06-07] MEDS: SODIUM CHLORIDE 0.9% 1,000 ML IV STA (12:49)
[2024-06-07 13:12] LABS: Basophils # (A) 0.1 k/uL (0-0.2); Basophils % (A) 1 %; Eosinophils # (A) 0.1 k/uL (0-0.7); Eosinophils % (A) 1 %; HCT 43.2 % (34.0-46.0); HGB 14.7 gm/dL (11.4-16.0); Lymphocytes # (A) 2.4 k/uL (1.0-4.8); Lymphocytes % (A) 30 %; MCH 30.5 pg (25.0-35.0); MCHC 34.1 g/dL (31.0-37.0); MCV 89.5 fL (80.0-100.0); Mean Platelet Volume 6.7; Monocytes # (A) 0.6 k/uL (0-1.0); Monocytes % (A) 7 %; Neutrophils # (A) 4.7 k/uL (1.3-7.7); Neutrophils % (A) 59 %; Platelet Count 293 k/uL (150-450); RBC 4.83 m/uL (3.80-5.40); RDW 12.5 % (11.5-15.5)
[2024-06-07] MEDS: ONDANSETRON 4 MG/2 ML VIAL IVP STA (13:32)
[2024-06-07 13:36] LABS: Appearance,Urine Cloudy (Clear); Bilirubin,Urine Negative (Negative); Blood,Urine Moderate (Negative); Color,Urine Yellow; Glucose,Urine (UA) Negative (Negative); Ketones,Urine 3+ (Negative); Leukocyte Esterase,Urine Moderate (Negative); Mucus,Urine Few /hpf; Nitrite,Urine Negative (Negative); PH, Urine 5.5 (5.0-8.0); Protein,Urine Trace (Negative); RBC,Urine 12 /hpf (0-5); Specific Gravity,Urine 1.031 (1.001-1.035); Squamous Epithelial Cell,Urine 23 /hpf (0-4); WBC,Urine 3 /hpf (0-5)
[2024-06-07 13:42] LABS: ALT 19 U/L (4-34); AST 22 U/L (14-36); African American GFR (CKD) >90 (>60 ml/min/1.73 sqM); Albumin 4.7 g/dL (3.5-5.0); Alkaline Phosphatase 71 U/L (38-126); Amylase 60 U/L (30-110); Anion Gap 12 mmol/L; Blood Urea Nitrogen 11 mg/dL (7-17); Calcium 9.4 mg/dL (8.4-10.2); Carbon Dioxide 21 mmol/L (22-30); Chloride 104 mmol/L (98-107); Glucose 93 mg/dL (74-99); Lipase 59 U/L (23-300); Non-African American GFR(CKD) >90 (>60 ml/min/1.73 sqM); Potassium 3.5 mmol/L (3.5-5.1); Sodium 137 mmol/L (137-145); Total Bilirubin 0.5 mg/dL (0.2-1.3); Total Protein 7.8 g/dL (6.3-8.2)
[2024-06-07 14:53] VITALS: TEMP 98.7
--- NOTE | 2024-06-07 15:19 | US ---
EXAMINATION TYPE: US abdomen complete DATE OF EXAM: 06/07/2024 COMPARISON: NONE CLINICAL INDICATION: Female, 28 years old with history of bilateral flank pain, epigastric abdominal pain; TECHNIQUE: Grayscale and color Doppler imaging of the abdomen was performed. FINDINGS: EXAM MEASUREMENTS: Liver Length: 14.6 cm Gallbladder Wall: 0.2 cm CBD: 0.5 cm, color Doppler imaging was utilized to isolate the common bile duct for measurement. Spleen: 7.7 cm Right Kidney: 10.8x3.3x4.4 cm Left Kidney: 13.8x5.5x5.0 cm GREASE REMOVER NOTES: Pt has known horseshoe kidney Pancreas: Tail obscured by overlying bowel gas. Visualized portions show no gross abnormality. Liver: wnl, no dilated ducts, masses or cysts. Gallbladder: No stones seen Evidence for sonographic Pina's sign: No CBD: wnl Spleen: wnl Right Kidney: wnl, No hydronephrosis, calculi or masses seen Left Kidney: wnl, No hydronephrosis, calculi or masses seen Pt has known horseshoe kidney Upper IVC: wnl Abd Aorta: Prox: slightly obscured by bowel IMPRESSION: Known horseshoe kidney. Otherwise, unremarkable sonographic examination of the abdomen. [facility], , 06/07/2024 3:17 PM
[2024-06-07 15:58] VITALS: BP 106/66; PULSE 78
== END 2024-06-07 15:58 | disposition home or self-care (01) ==
LOC: EC 12:33
DX: R19.7 Diarrhea, unspecified (principal); R10.9 Unspecified abdominal pain; R39.15 Urgency of urination; Z88.5 Allergy status to narcotic agent
CPT/HCPCS: 36415; 80053; 82150; 83690; 85025; 81001; 81025; 76700; 99284; 96361; 96374; J2405

== ENCOUNTER 2024-06-08 11:48 | Emergency (ER) | payer MEDICAID ==
[2024-06-08 12:08] VITALS: RESP 16
[2024-06-08] MEDS: KETOROLAC 15 MG/ML 1 ML VIAL IVP STA (12:47)
[2024-06-08] MEDS: ONDANSETRON 4 MG/2 ML VIAL IVP STA (12:48)
[2024-06-08] MEDS: PANTOPRAZOLE 40 MG/10 ML VIAL IVP STA (12:51)
[2024-06-08] MEDS: SODIUM CHLORIDE 0.9% 1,000 ML IV STA (12:51)
[2024-06-08 13:02] LABS: Basophils % (A) 1 %; Eosinophils # (A) 0.2 k/uL (0-0.7); Eosinophils % (A) 3 %; HCT 40.2 % (34.0-46.0); HGB 13.7 gm/dL (11.4-16.0); Lymphocytes # (A) 2.4 k/uL (1.0-4.8); Lymphocytes % (A) 33 %; MCH 30.3 pg (25.0-35.0); MCV 88.9 fL (80.0-100.0); Mean Platelet Volume 7.3; Monocytes # (A) 0.5 k/uL (0-1.0); Monocytes % (A) 7 %; Neutrophils # (A) 3.8 k/uL (1.3-7.7); Neutrophils % (A) 54 %; Platelet Count 311 k/uL (150-450); RBC 4.52 m/uL (3.80-5.40); WBC 7.1 k/uL (3.8-10.6)
[2024-06-08 13:11] LABS: Appearance,Urine Clear (Clear); Bacteria,Urine Rare /hpf; Bilirubin,Urine Negative (Negative); Blood,Urine Small (Negative); Color,Urine Colorless; Glucose,Urine (UA) Negative (Negative); Ketones,Urine Negative (Negative); Leukocyte Esterase,Urine Negative (Negative); Mucus,Urine Rare /hpf; Nitrite,Urine Negative (Negative); Protein,Urine Negative (Negative); RBC,Urine 3 /hpf (0-5); Specific Gravity,Urine 1.008 (1.001-1.035); Squamous Epithelial Cell,Urine 1 /hpf (0-4); Urobilinogen,Urine <2.0 mg/dL (<2.0); WBC,Urine <1 /hpf (0-5)
[2024-06-08 13:15] LABS: ALT 16 U/L (4-34); AST 22 U/L (14-36); African American GFR (CKD) >90 (>60 ml/min/1.73 sqM); Albumin 4.5 g/dL (3.5-5.0); Alkaline Phosphatase 50 U/L (38-126); Amylase 66 U/L (30-110); Anion Gap 10 mmol/L; Blood Urea Nitrogen 6 mg/dL (7-17); Calcium 9.2 mg/dL (8.4-10.2); Carbon Dioxide 23 mmol/L (22-30); Chloride 105 mmol/L (98-107); Glucose 86 mg/dL (74-99); Lipase 62 U/L (23-300); Non-African American GFR(CKD) >90 (>60 ml/min/1.73 sqM); Potassium 3.9 mmol/L (3.5-5.1); Sodium 138 mmol/L (137-145); Total Bilirubin 0.5 mg/dL (0.2-1.3); Total Protein 7.3 g/dL (6.3-8.2)
[2024-06-08 13:17] LABS: Partial Thromboplastin Time 26.1 sec (22.0-30.0)
--- NOTE | 2024-06-08 13:21 | ED ---
General Adult HPI - General Chief complaint: Abdominal Pain Stated complaint: Abd pain, vomiting Time Seen by Provider: 06/08/24 12:28 Source: patient, RN notes reviewed, old records reviewed Mode of arrival: ambulatory Limitations: no limitations - History of Present Illness Initial comments: Patient is a 28-year-old female who presents back to the ER for evaluation for abdominal pain. Has been having abdominal pain for a few days. Was seen yesterday in the emergency department for abdominal pain. Time including ultrasound of the abdomen unremarkable. History of horseshoe kidney. No history of abdominal surgery. Has a history of asthma. Denies any fevers, chills, cough. Denies any urinary complaints. With the abdominal pain, patient is having nausea without emesis that is nonbilious and bloody as well as nonbloody diarrhea. No known sick contacts. Presents for further evaluation at this time. - Related Data Home Medications Medication Instructions Recorded Confirmed norethindrone-e.estradioL-iron 1 tab PO HS 08/04/22 08/14/22 [Junel Fe 1 mg-20 Mcg Tablet] Sulfamethox-Tmp 800-160Mg [Bactrim 1 tab PO Q12HR 08/14/22 08/14/22 DS 800-160 mg] Previous Rx's Medication Instructions Recorded Ibuprofen 400 mg PO Q8HR PRN #30 tablet 08/04/22 Ondansetron Odt [Zofran Odt] 4 mg PO Q8HR PRN #20 tab 04/12/23 Cephalexin [Keflex] 500 mg PO BID #20 cap 09/17/23 Fluconazole [Diflucan] 150 mg PO ONCE #1 tab 09/17/23 Ondansetron Odt [Zofran Odt] 4 mg PO Q8HR PRN #10 tab 06/07/24 Dicyclomine [Bentyl] 10 mg PO TID PRN 15 Days #5 capsule 06/08/24 Allergies Allergy/AdvReac Type Severity Reaction Status Date / Time morphine Allergy Rash/DK Verified 06/08/24 12:08 Review of Systems ROS Statement: Those systems with pertinent positive or pertinent negative responses have been documented in the HPI. Review of Systems: CONST: Denies fever EYES: Denies blurry vision ENT: Denies nasal congestion C/V: Denies Chest pain RESP: Denies shortness of breath GI: Endorses abdominal pain : Denies dysuria SKIN: Denies rash. MSK: Denies joint pain. NEURO: Denies headache ROS Other: All systems not noted in ROS Statement are negative. Past Medical History Past Medical History: Asthma Additional Past Medical History / Comment(s): renal fusion (horseshoe kidney) History of Any Multi-Drug Resistant Organisms: None Reported Past Surgical History: No Surgical Hx Reported Past Psychological History: No Psychological Hx Reported Smoking Status: Never smoker Past Alcohol Use History: None Reported Past Drug Use History: None Reported General Exam - General Exam Comments Initial Comments: General: Appears in mild discomfort secondary to abdominal discomfort. HEAD: Normal with no signs of head trauma. EYES: EOMI ENT: Hearing grossly intact, normal oropharynx. RESPIRATORY: Clear breath sounds bilaterally. No wheezes, rales, or rhonchi. C/V: Regular rate and rhythm. S1 and S2 auscultated, no edema, peripheral pulses 2+ and intact throughout ABD: Abdomen soft, nondistended. Generalized abdominal discomfort to palpation. No guarding or rebound tenderness. No peritoneal signs. EXT: Normal range of motion, no obvious deformity SKIN: No rashes or lesions observed on exposed skin. NEURO: Alert and oriented x 4. Limitations: no limitations Course Vital Signs 06/08/24 06/08/24 06/08/24 12:05 12:54 14:30 Temperature 98.6 F 98.8 F Pulse Rate 100 74 73 Respiratory 16 16 16 Rate Blood Pressure 115/77 112/66 107/64 O2 Sat by Pulse 99 100 100 Oximetry 06/08/24 15:06 Temperature 98.6 F Pulse Rate 76 Respiratory 16 Rate Blood Pressure 104/63 O2 Sat by Pulse 100 Oximetry Medical Decision Making - Medical Decision Making Was pt. sent in by a medical professional or institution (, PA, BED BUG EXTERMINATOR, urgent care, hospital, or prison...) When possible be specific @ -No Did you speak to anyone other than the patient for history (EMS, parent, family, police, friend...)? What history was obtained from this source @ -No Did you review nursing and triage notes (agree or disagree)? Why? @ -I reviewed and agree with nursing and triage notes Were old charts reviewed (outside hosp., previous admission, EMS record, old EKG, old radiological studies, urgent care reports/EKG's, prison records)? Report findings @ -Reviewed charts including labs and ultrasound results from yesterday 06/07/2024. Remarkable for negative test. Mild hematuria. No other acute findings on visit. Differential Diagnosis (chest pain, altered mental status, abdominal pain women, abdominal pain men, vaginal bleeding, weakness, fever, dyspnea, syncope, headache, dizziness, GI bleed, back pain, seizure, CVA, palpatations, mental health, musculoskeletal)? @ -Differential Abdominal Pain Women: Appendicitis, Cholecystitis, diverticulosis, ischemic bowel, pancreatitis, hepatitis, UTI, gastroenteritis, AAA, incarcerated hernia, bowel obstruction, constipation, inflammatory bowel, hepatitis, peptic ulcer disease, splenic infarction, perforated viscus, vulvitis, ovarian torsion, PID, kidney stone, placenta abruption, this is not meant to be an all-inclusive list EKG interpreted by me (3pts min.). @ -None done X-rays interpreted by me (1pt min.). @ -None done CT interpreted by me (1pt min.). @ -CT abdomen pelvis reveals enteritis. No other obvious acute findings. U/S interpreted by me (1pt. min.). @ -None done What testing was considered but not performed or refused? (CT, X-rays, U/S, labs)? Why? @ -None What meds were considered but not given or refused? Why? @ -None Did you discuss the management of the patient with other professionals (professionals i.e. , PA, BED BUG EXTERMINATOR, lab, RT, psych nurse, social media job titles, carriage feeder, teacher, nuclear security officer, case aide)? Give summary @ -No Was smoking cessation discussed for >3mins.? @ -No Was critical care preformed (if so, how long)? @ -No Were there social determinants of health that impacted care today? How? (Homelessness, low income, unemployed, alcoholism, drug addiction, transportation, low edu. Level, literacy, decrease access to med. care, retirement, rehab)? @ -No Was there de-escalation of care discussed even if they declined (Discuss DNR or withdrawal of care, Hospice)? DNR status @ -No What co-morbidities impacted this encounter? (DM, HTN, Smoking, COPD, CAD, Cancer, CVA, ARF, Chemo, Hep., AIDS, mental health diagnosis, sleep apnea, morbi d obesity)? @ -None Was patient admitted / discharged? Hospital course, mention meds given and rout e, prescriptions, significant lab abnormalities, going to OR and other pertinent info. @ -Patient's presentation and physical exam, presents emergency department complaining of abdominal pain. Has been ongoing for a few days. Was seen yesterday for similar complaints. Is having continued abdominal discomfort with nausea and went to be reevaluated. Yesterday patient had ultrasound as well as lab draws done. Patient will be administered IV fluids, Toradol, Zofran, Protonix. Will obtain abdominal labs as well as CT abdomen/pelvis. Patient was in agreement this plan. Vital signs are within acceptable limits. Imaging reveals enteritis. Laboratory studies remarkable for no obvious acute findings. I discussed results with patient. Likely viral enteritis. Patient will be given a prescription for Bentyl. She has ODT Zofran at home already. Recommended follow-up with PCP. She was in agreement this plan. I will provide the patient with a prescription for Bentyl. I instructed the patient to follow up with their PCP in the next 1-3 days.. I explained that the patient should return to the emergency department if they experience any worsening symptoms. Strict return precautions were discussed with the patient. The patient expressed understanding of these instructions. I answered all questions that the patient had. The patient was discharged home in fair condition with their prescriptions and follow up information. Undiagnosed new problem with uncertain prognosis? @ -No Drug Therapy requiring intensive monitoring for toxicity (Heparin, Nitro, Insulin, Cardizem)? @ -No Were any procedures done? @ -No Diagnosis/symptom? @ -Enteritis Acute, or Chronic, or Acute on Chronic? @ -Acute Uncomplicated (without systemic symptoms) or Complicated (systemic symptoms)? @ -Uncomplicated Side effects of treatment? @ -None Exacerbation, Progression, or Severe Exacerbation] @ -No Poses a threat to life or bodily function? @ -Unlikely at this time - Lab Data Result diagrams: 06/08/24 12:42 06/08/24 12:42 Lab Results 06/08/24 06/08/24 06/08/24 Range/Units 12:42 12:42 12:42 WBC 7.1 (3.8-10.6) k/uL RBC 4.52 (3.80-5.40) m/uL Hgb 13.7 (11.4-16.0) gm/dL Hct 40.2 (34.0-46.0) % MCV 88.9 (80.0-100.0) fL MCH 30.3 (25.0-35.0) pg MCHC 34.0 (31.0-37.0) g/dL RDW 13.0 (11.5-15.5) % Plt Count 311 (150-450) k/uL MPV 7.3 Neutrophils % 54 % Lymphocytes % 33 % Monocytes % 7 % Eosinophils % 3 % Basophils % 1 % Neutrophils # 3.8 (1.3-7.7) k/uL Lymphocytes # 2.4 (1.0-4.8) k/uL Monocytes # 0.5 (0-1.0) k/uL Eosinophils # 0.2 (0-0.7) k/uL Basophils # 0.0 (0-0.2) k/uL PT 11.0 (10.0-12.5) sec INR 1.0 (<1.2) APTT 26.1 (22.0-30.0) sec Sodium (137-145) mmol/L Potassium (3.5-5.1) mmol/L Chloride (98-107) mmol/L Carbon Dioxide (22-30) mmol/L Anion Gap mmol/L BUN (7-17) mg/dL Creatinine (0.52-1.04) mg/dL Est GFR (CKD-EPI)AfAm (>60 ml/min/1.73 sqM) Est GFR (CKD-EPI)NonAf (>60 ml/min/1.73 sqM) Glucose (74-99) mg/dL Plasma Lactic Acid [place]ume[place] (0.7-2.0) mmol/L Calcium (8.4-10.2) mg/dL Total Bilirubin (0.2-1.3) mg/dL AST (14-36) U/L ALT (4-34) U/L Alkaline Phosphatase (38-126) U/L Total Protein (6.3-8.2) g/dL Albumin (3.5-5.0) g/dL Amylase (30-110) U/L Lipase (23-300) U/L Urine Color Colorless Urine Appearance Clear (Clear) Urine pH 6.0 (5.0-8.0) Ur Specific [place] 1.008 (1.001-1.035) Urine Protein Negative (Negative) Urine Glucose (UA) Negative (Negative) Urine Ketones Negative (Negative) Urine Blood Small H (Negative) Urine Nitrite Negative (Negative) Urine Bilirubin Negative (Negative) Urine Urobilinogen <2.0 (<2.0) mg/dL Ur Leukocyte Esterase Negative (Negative) Urine RBC 3 (0-5) /hpf Urine WBC <1 (0-5) /hpf Ur Squamous Epith Cells 1 (0-4) /hpf Urine Bacteria Rare H (None) /hpf Urine Mucus Rare H (None) /hpf Influenza Type A (PCR) (Not Detectd) Influenza Type B (PCR) (Not Detectd) RSV (PCR) (Not Detectd) SARS-CoV-2 (PCR) (Not Detectd) 06/08/24 06/08/24 06/08/24 Range/Units 12:42 12:42 12:42 WBC (3.8-10.6) k/uL RBC (3.80-5.40) m/uL Hgb (11.4-16.0) gm/dL Hct (34.0-46.0) % MCV (80.0-100.0) fL MCH (25.0-35.0) pg MCHC (31.0-37.0) g/dL RDW (11.5-15.5) % Plt Count (150-450) k/uL MPV Neutrophils % % Lymphocytes % % Monocytes % % Eosinophils % % Basophils % % Neutrophils # (1.3-7.7) k/uL Lymphocytes # (1.0-4.8) k/uL Monocytes # (0-1.0) k/uL Eosinophils # (0-0.7) k/uL Basophils # (0-0.2) k/uL PT (10.0-12.5) sec INR (<1.2) APTT (22.0-30.0) sec Sodium 138 (137-145) mmol/L Potassium 3.9 (3.5-5.1) mmol/L Chloride 105 (98-107) mmol/L Carbon Dioxide 23 (22-30) mmol/L Anion Gap 10 mmol/L BUN 6 L (7-17) mg/dL Creatinine 0.51 L (0.52-1.04) mg/dL Est GFR (CKD-EPI)AfAm >90 (>60 ml/min/1.73 sqM) Est GFR (CKD-EPI)NonAf >90 (>60 ml/min/1.73 sqM) Glucose 86 (74-99) mg/dL Plasma Lactic Acid [place] 0.6 L (0.7-2.0) mmol/L Calcium 9.2 (8.4-10.2) mg/dL Total Bilirubin 0.5 (0.2-1.3) mg/dL AST 22 (14-36) U/L ALT 16 (4-34) U/L Alkaline Phosphatase 50 (38-126) U/L Total Protein 7.3 (6.3-8.2) g/dL Albumin 4.5 (3.5-5.0) g/dL Amylase 66 (30-110) U/L Lipase 62 (23-300) U/L Urine Color Urine Appearance (Clear) Urine pH (5.0-8.0) Ur Specific [place] (1.001-1.035) Urine Protein (Negative) Urine Glucose (UA) (Negative) Urine Ketones (Negative) Urine Blood (Negative) Urine Nitrite (Negative) Urine Bilirubin (Negative) Urine Urobilinogen (<2.0) mg/dL Ur Leukocyte Esterase (Negative) Urine RBC (0-5) /hpf Urine WBC (0-5) /hpf Ur Squamous Epith Cells (0-4) /hpf Urine Bacteria (None) /hpf Urine Mucus (None) /hpf Influenza Type A (PCR) Not Detected (Not Detectd) Influenza Type B (PCR) Not Detected (Not Detectd) RSV (PCR) Not Detected (Not Detectd) SARS-CoV-2 (PCR) Not Detected (Not Detectd) Disposition Clinical Impression: Enteritis Disposition: HOME SELF-CARE Condition: Fair Instructions (If sedation given, give patient instructions): Enteritis (ED) Additional Instructions: Your CT imaging reveals enteritis. Follow-up with your PCP if any worsening symptoms. You can return to the ER if any worsening symptoms. Symptoms should resolve within 7 to 14 days. Likely a viral illness. Prescriptions: Dicyclomine [Bentyl] 10 mg PO TID PRN 15 Days #5 capsule PRN Reason: Pain Is patient prescribed a controlled substance at d/c from ED?: No Referrals: None,Stated [Primary Care Provider] - 1-2 days Time of Disposition: 14:45
--- NOTE | 2024-06-08 13:39 | CT ---
EXAMINATION TYPE: CT abdomen pelvis w con CT DLP: 560.2 mGycm, Automated exposure control for dose reduction was used. DATE OF EXAM: 06/08/2024 1:14 PM COMPARISON: Abdominal ultrasound 06/07/2024, CT abdomen and pelvis 05/09/2015 CLINICAL INDICATION:Female, 28 years old with history of abdominal pain; ABD PAIN TECHNIQUE: Standard CT of the abdomen and pelvis following the administration of 100 cc of Isovue 3 00 IV contrast material. Coronal and sagittal reformats were performed. FINDINGS: LOWER CHEST: Unremarkable ABDOMEN LIVER: Unremarkable GALLBLADDER AND BILE DUCTS: Unremarkable. PANCREAS: Unremarkable. SPLEEN: Unremarkable. ADRENAL GLANDS: Unremarkable. KIDNEYS AND URETERS: No evidence of hydronephrosis or renal calculus. Horseshoe kidney identified. Co ntrast is demonstrated within the collecting systems. PELVIS BLADDER: Incompletely distended but grossly unremarkable. REPRODUCTIVE: Unremarkable anteverted uterus with right ovarian corpus luteum. ABDOMEN & PELVIS STOMACH AND BOWEL: Stomach and duodenum are unremarkable. Fluid-filled small bowel without wall thick ening or surrounding inflammatory changes. The appendix is within normal limits. No evidence of bowel obstruction. PERITONEUM: No evidence of pneumoperitoneum. Small amount of free fluid in the pelvis. VASCULATURE: No evidence of aortic aneurysm. MUSCULOSKELETAL: No acute osseous abnormalities LYMPH NODES: No evidence for lymphadenopathy. SOFT TISSUE/ABDOMINAL WALL: Unremarkable IMPRESSION: 1. Fluid-filled nondilated loops of small bowel which may be seen with an enteritis. 2. Horseshoe kidney redemonstrated. 3. Nonspecific small amount of free fluid in the pelvis. May be physiologic. [facility], , 06/08/2024 1:37 PM
[2024-06-08 13:40] LABS: Influenza A Not Detected (Not Detectd); Influenza B Not Detected (Not Detectd); RSV Not Detected (Not Detectd)
[2024-06-08 15:06] VITALS: BP 104/63; PULSE 76; TEMP 98.6
== END 2024-06-08 15:10 | disposition home or self-care (01) ==
LOC: EC 11:48
DX: K52.9 Noninfective gastroenteritis and colitis, unspecified (principal); J45.909 Unspecified asthma, uncomplicated; Q63.1 Lobulated, fused and horseshoe kidney; Z88.5 Allergy status to narcotic agent
CPT/HCPCS: 36415; 80053; 82150; 83605; 83690; 85025; 85610; 85730; 81001; 87636; 74177; 99285; 96374; 96375; 96361; J2405; J1885; Q9967; J2470